=== PATIENT | female | born 1995 | race Caucasian/White ===

== ENCOUNTER 2019-02-15 20:45 | Observation (INO) | payer OTHER ==
[~2019-02-15] VITALS: Ht 157.5 cm; Wt 56.7 kg
--- NOTE | 2019-02-15 20:56 | ED General ---
General Stated Complaint: OVERDOSE Source of Information: Patient Exam Limitations: No Limitations (VENTURA FREED APRN) History of Present Illness Date Seen by Provider: Feb 15, 2019 Time Seen by Provider: 20:54 Initial Comments Brought to ER by her boyfriend with reports of an overdose. Patient reportedly took 10 of the 10 mg Paxil tablets at 8:20- 8:30 PM this evening as part of an attempt to harm herself due to worsening depression over the past month. Boyfriend is present and relates this to TROUBLES" between themselves. She denies any other medication or substance use. She does have a history of this in the past, states it's been several years ago. She sees a therapist and psychiatrist in [place] Timing/Duration: Getting Worse Severity: Moderate (VENTURA FREED APRN) Allergies and Home Medications Allergies Coded Allergies: No Known Drug Allergies (Unverified , 02/15/19) Patient Home Medication List Home Medication List Reviewed: Yes (VENTURA FREED APRN) Review of Systems Review of Systems Constitutional: see HPI EENTM: see HPI Respiratory: no symptoms reported Cardiovascular: no symptoms reported Genitourinary: no symptoms reported Musculoskeletal: no symptoms reported Skin: no symptoms reported Psychiatric/Neurological: No Symptoms Reported Hematologic/Lymphatic: No Symptoms Reported (VENTURA FREED APRN) Past Mixvdvi-Kspnhb-Fjjaoj Hx Patient Social History Recent Foreign Travel: No Contact w/Someone Who Travel: No (VENTURA FREED APRN) Physical Exam Vital Signs Vital Signs - First Documented 02/15/19 20:55 Temp 36.4 Pulse 95 Resp 18 B/P (MAP) 144/106 (119) Pulse Ox 97 O2 Delivery Room Air (CRISTINA PORTILLO) Vital Signs Capillary Refill : (VENTURA FREED APRN) Height, Weight, BMI Height: '" Weight: lbs. oz. kg; BMI Method: General Appearance: No Apparent Distress, WD/WN, Other (tearful) Eyes: Bilateral Eye Normal Inspection, Bilateral Eye PERRL, Bilateral Eye EOMI HEENT: PERRL/EOMI, TMs Normal Neck: Full Range of Motion, Normal Inspection Respiratory: No Accessory Muscle Use, No Respiratory Distress Cardiovascular: Regular Rate, Rhythm, Normal Peripheral Pulses Gastrointestinal: Non Tender, Soft Neurologic/Psychiatric: Alert, Oriented x3 Skin: Normal Color, Warm/Dry (VENTURA FREED APRN) Progress/Results/Core Measures Suspected Sepsis SIRS Temperature: Pulse: Respiratory Rate: Laboratory Tests 02/15/19 20:59: White Blood Count 6.4 Blood Pressure / Mean: Laboratory Tests 02/15/19 20:59: Platelet Count 302 (VENTURA FREED APRN) Results/Orders Lab Results Laboratory Tests Test 02/15/19 20:59 02/15/19 21:10 Range/Units White Blood Count 6.4 4.3-11.0 10^3/uL Red Blood Count 5.00 4.35-5.85 10^6/uL Hemoglobin 15.4 11.5-16.0 G/DL Hematocrit 44 35-52 % Mean Corpuscular Volume 88 80-99 FL Mean Corpuscular Hemoglobin 31 25-34 PG Mean Corpuscular Hemoglobin Concent 35 32-36 G/DL Red Cell Distribution Width 12.8 10.0-14.5 % Platelet Count 302 130-400 10^3/uL Mean Platelet Volume 10.7 H 7.4-10.4 FL Neutrophils (%) (Auto) 52 42-75 % Lymphocytes (%) (Auto) 35 12-44 % Monocytes (%) (Auto) 11 0-12 % Eosinophils (%) (Auto) 2 0-10 % Basophils (%) (Auto) 0 0-10 % Neutrophils # (Auto) 3.3 1.8-7.8 X 10^3 Lymphocytes # (Auto) 2.2 1.0-4.0 X 10^3 Monocytes # (Auto) 0.7 0.0-1.0 X 10^3 Eosinophils # (Auto) 0.1 0.0-0.3 10^3/uL Basophils # (Auto) 0.0 0.0-0.1 10^3/uL Sodium Level 144 135-145 MMOL/L Potassium Level 3.3 L 3.6-5.0 MMOL/L Chloride Level 112 H 98-107 MMOL/L Carbon Dioxide Level 17 L 21-32 MMOL/L Anion Gap 15 H 5-14 MMOL/L Blood Urea Nitrogen 12 7-18 MG/DL Creatinine 0.73 0.60-1.30 MG/DL Estimat Glomerular Filtration Rate > 60 BUN/Creatinine Ratio 16 Glucose Level 90 70-105 MG/DL Calcium Level 9.9 8.5-10.1 MG/DL Corrected Calcium 8.5-10.1 MG/DL Total Bilirubin 0.5 0.1-1.0 MG/DL Aspartate Amino Transf (AST/SGOT) 21 5-34 U/L Alanine Aminotransferase (ALT/SGPT) 28 0-55 U/L Alkaline Phosphatase 112 40-136 U/L Total Protein 7.6 6.4-8.2 GM/DL Albumin 4.9 H 3.2-4.5 GM/DL Serum Test, Qualitative NEGATIVE NEGATIVE Salicylates Level < 5.0 L 5.0-20.0 MG/DL Acetaminophen Level < 10 L 10-30 UG/ML Serum Alcohol 87 H <10 MG/DL Urine Color STRAW Urine Clarity SL CLOUDY Urine pH 7 5-9 Urine Specific [place] 1.005 L 1.016-1.022 Urine Protein NEGATIVE NEGATIVE Urine Glucose (UA) NEGATIVE NEGATIVE Urine Ketones NEGATIVE NEGATIVE Urine Nitrite NEGATIVE NEGATIVE Urine Bilirubin NEGATIVE NEGATIVE Urine Urobilinogen NORMAL NORMAL MG/DL Urine Leukocyte Esterase NEGATIVE NEGATIVE Urine RBC (Auto) NEGATIVE NEGATIVE Urine RBC NONE /HPF Urine WBC NONE /HPF Urine Squamous Epithelial Cells 5-10 /HPF Urine Crystals NONE /LPF Urine Bacteria TRACE /HPF Urine Casts NONE /LPF Urine Mucus SMALL H /LPF Urine Culture Indicated NO Urine Opiates Screen NEGATIVE NEGATIVE Urine Oxycodone Screen NEGATIVE NEGATIVE Urine Methadone Screen NEGATIVE NEGATIVE Urine Propoxyphene Screen NEGATIVE NEGATIVE Urine Barbiturates Screen NEGATIVE NEGATIVE Ur Tricyclic Antidepressants Screen NEGATIVE NEGATIVE Urine Phencyclidine Screen NEGATIVE NEGATIVE Urine Amphetamines Screen NEGATIVE NEGATIVE Urine Methamphetamines Screen NEGATIVE NEGATIVE Urine Benzodiazepines Screen NEGATIVE NEGATIVE Urine Cocaine Screen NEGATIVE NEGATIVE Urine Cannabinoids Screen NEGATIVE NEGATIVE (CRISTINA PORTILLO) Vital Signs/I&O 02/15/19 20:55 Temp 36.4 Pulse 95 Resp 18 B/P (MAP) 144/106 (119) Pulse Ox 97 O2 Delivery Room Air (CRISTINA PORTILLO) Vital Signs/I&O Capillary Refill : (VENTURA FREED APRN) Progress Note : Time: 22:08 Progress Note Assumed care of the patient at shift change from Ventura Freed APRN. [facility] screener came and sat with the patient and says that after discussing her case the patient still says she wants to go to sleep and never wake up and thinks the world would be better off without her in it. She also says that she does not want to go inpatient psychiatric care. [facility] recommends the patient go inpatient so our plan will be placed the patient on observation status for medical clearance and then in the morning aids social worker can work on placement for involuntary inpatient psychiatric care. (CRISTINA PORTILLO) Departure Communication (Admissions) 2056 height discussed with Sweta from poison control. States that ingestions of 10-1000 mg have resulted in no symptoms. Would recommend observation for 4 hours anyway. Does not recommend charcoal administration. 2119-[facility] will be out to evaluate the patient (VENTURA FREED APRN) Time/Spoke to Admitting Phy: 22:10 Discussed case lab imaging findings with Dr. Barillas and she agrees to observe the patient and her aids social worker consult the morning really involuntary psychiatric placement. (CRISTINA PORTILLO) Impression Primary Impression: Overdose of antidepressant Qualified Codes: T43.202A - Poisoning by unspecified antidepressants, intentional self-harm, initial encounter Disposition: ADMITTED INPATIENT Condition: Stable Admissions Decision to Admit Reason: Admit from ER (General) Decision to Admit/Date: Feb 15, 2019 Time/Decision to Admit Time: 22:00 (CRISTINA PORTILLO) Departure-Patient Inst. Referrals: NO,LOCAL PHYSICIAN (PCP) Primary Care Physician VENTURA FREED APRN Feb 15, 2019 20:55 CRISTINA PORTILLO Feb 15, 2019 22:12
[2019-02-15] MEDS ORDERED: CHARCOAL/AQUEOUS 50 GM/240 ML BTL PO ONE (21:00)
[2019-02-15 21:10] LABS: BASOPHILS % (AUTO) 0 % (0-10); EOSINOPHILS # (AUTO) 0.1 10^3/uL (0.0-0.3); EOSINOPHILS % (AUTO) 2 % (0-10); HEMATOCRIT 44 % (35-52); HEMOGLOBIN 15.4 G/DL (11.5-16.0); LYMPHOCYTES # (AUTO) 2.2 X 10^3 (1.0-4.0); LYMPHOCYTES % (AUTO) 35 % (12-44); MEAN CORPUSCULAR HEMOGLOBIN 31 PG (25-34); MEAN CORPUSCULAR HGB CONC 35 G/DL (32-36); MEAN CORPUSCULAR VOLUME 88 FL (80-99); MEAN PLATELET VOLUME 10.7 FL (7.4-10.4); MONOCYTES # (AUTO) 0.7 X 10^3 (0.0-1.0); MONOCYTES % (AUTO) 11 % (0-12); NEUTROPHILS # (AUTO) 3.3 X 10^3 (1.8-7.8); NEUTROPHILS % (AUTO) 52 % (42-75); PLATELET COUNT 302 10^3/uL (130-400); RED CELL DISTRIBUTION WIDTH 12.8 % (10.0-14.5); WHITE BLOOD COUNT 6.4 10^3/uL (4.3-11.0)
[2019-02-15 21:24] LABS: BILIRUBIN,URINE NEGATIVE (NEGATIVE); GLUCOSE, URINE (UA) NEGATIVE (NEGATIVE); KETONES,URINE NEGATIVE (NEGATIVE); LEUKOCYTE ESTERASE ,URINE NEGATIVE (NEGATIVE); NITRITE,URINE NEGATIVE (NEGATIVE); PH,URINE 7 (5-9); PROTEIN,URINE NEGATIVE (NEGATIVE); UROBILINOGEN,URINE NORMAL (NORMAL)
[2019-02-15 21:28] LABS: COLOR,URINE STRAW
[2019-02-15 21:31] LABS: BACTERIA,URINE TRACE /HPF; CLARITY,URINE SL CLOUDY
[2019-02-15 21:31] LABS: ALANINE AMINOTRANSFERASE 28 U/L (0-55); ALBUMIN 4.9 GM/DL (3.2-4.5); ALKALINE PHOSPHATASE 112 U/L (40-136); BILIRUBIN,TOTAL 0.5 MG/DL (0.1-1.0); BUN/CREATININE RATIO 16; CALCIUM 9.9 MG/DL (8.5-10.1); CARBON DIOXIDE 17 MMOL/L (21-32); CHLORIDE 112 MMOL/L (98-107); CREATININE SERUM 0.73 MG/DL (0.60-1.30); GFR ESTIMATED > 60; GLUCOSE 90 MG/DL (70-105); POTASSIUM 3.3 MMOL/L (3.6-5.0); SALICYLATE < 5.0 MG/DL (5.0-20.0); SODIUM 144 MMOL/L (135-145); TOTAL PROTEIN 7.6 GM/DL (6.4-8.2)
[2019-02-15 21:34] LABS: ACETAMINOPHEN < 10 UG/ML (10-30)
[2019-02-15 21:35] LABS: AMPHETAMINE SCREEN, URINE NEGATIVE (NEGATIVE); BARBITURATE SCREEN URINE NEGATIVE (NEGATIVE); BENZODIAZEPINES SCREEN URINE NEGATIVE (NEGATIVE); CANNABINOID SCREEN, URINE NEGATIVE (NEGATIVE); COCAINE SCREEN URINE NEGATIVE (NEGATIVE); METHADONE STAT NEGATIVE (NEGATIVE); METHAMPHETAMINE SCREEN URINE S NEGATIVE (NEGATIVE); OPIATE SCREEN URINE NEGATIVE (NEGATIVE); OXYCODONE STAT NEGATIVE (NEGATIVE); PROPOXYPHENE STAT NEGATIVE (NEGATIVE); TRICYCLIC ANTIDEPRESSANTS SCRE NEGATIVE (NEGATIVE)
--- NOTE | 2019-02-15 22:02 | NUR ---
DR PORTILLO IN ROOM TO DISCUSS CARE.
[2019-02-15] MEDS ORDERED: ONDANSETRON 4 MG/2 ML (SDV) Z0FRAN ONE (22:17)
[2019-02-15] MEDS ORDERED: ONDANSETRON 4 MG/2 ML (SDV) Z0FRAN IVP ONE (22:30)
[2019-02-15 23:05] VITALS: BP 121/71
--- NOTE | 2019-02-15 23:05 | NUR ---
ROBBY CORREA Stanley admitted to room 421-1, with an admitting diagnosis of suicidal attempt with paxil, on 02/15/19 from ED via wheelchair, accompanied by family and staff.ROBBY CORREA introduced to surroundings, call light, bed controls, phone, TV, temperature control, lights, meal times, smoking policy, visitor policy, side rail policy, bathrooms and showers. Patient Rights given to patient in the handbook. ROBBY CORREA verbalizes understanding that [facility] is not responsible for the loss or damage to any personal effects or valuables that are kept in the patients posession during their hospitalization.
--- NOTE | 2019-02-15 23:09 | NUR ---
THIS RN SPOKE WITH DR. GARCIA AND SHE AGREED WITH PLAN OF CARE TO HAVE TELESITTER IN PLACE ALONG WITH PATIENTS MOTHER TO BE IN THE ROOM AT ALL TIMES INSTEAD OF 1:[address]
--- NOTE | 2019-02-15 23:13 | NUR ---
Marleen Correa Stanley admitted to room 421-1, with an admitting diagnosis of Suicidal Attempt with Paxil, on 02/15/19 from ed via , accompanied by ED Staff/Family .MARLEEN CORREA introduced to surroundings, call light, bed controls, phone, TV, temperature control, lights, meal times, smoking policy, visitor policy, side rail policy, bathrooms and showers. Patient Rights given to patient in the handbook.MARLEEN CORREA verbalizes understanding that [facility] is not responsible for the loss or damage to any personal effects or valuables that are kept in the patients posession during their hospitalization.
[2019-02-16] VITALS: BP 121/71
[2019-02-16 04:00] VITALS: BP 106/67
[2019-02-16] MEDS ORDERED: ONDANSETRON 4 MG/2 ML (SDV) Z0FRAN IVP PRN (07:30)
[2019-02-16] MEDS ORDERED: PARO10TA81 PO (10:48)
--- NOTE | 2019-02-16 10:48 | NUR ---
SPOKE WITH PT ALSO CALLED [facility] TO COMPLETE THE MED REC. HARDEEP VERIFIED THAT THE PT'S MOST CURRENT DOSE OF PAROXETINE IS THE 10MG 1 DAILY PT STATES SHE DOESN'T TAKE ANY OTC MEDS
[2019-02-16 11:12] LABS: BUN/CREATININE RATIO 19; CALCIUM 9.3 MG/DL (8.5-10.1); CARBON DIOXIDE 25 MMOL/L (21-32); CHLORIDE 109 MMOL/L (98-107); GFR ESTIMATED > 60; GLUCOSE 91 MG/DL (70-105); MAGNESIUM 2.1 MG/DL (1.6-2.4); POTASSIUM 3.7 MMOL/L (3.6-5.0); SODIUM 141 MMOL/L (135-145)
--- NOTE | 2019-02-16 12:23 | NUR ---
Behavioral health here assessed patient - clear for discharge to f/u with her therapy tomorrow at 1100
--- NOTE | 2019-02-16 14:01 | Discharge Instructions ---
Discharge Instructions Patient Instructions Patient Instructions: Take medications as prescribed. Follow up with therapist tomorrow. [facility] For: fevers, confusion, suicidal thoughts, or if you feel like you are getting worse Activity & Diet Discharge Diet: No Restrictions Activity as Tolerated: Yes TUNDE FORTUNE MD Feb 16, 2019 14:01
[2019-02-16 14:31] VITALS: BP 106/67
--- NOTE | 2019-02-16 14:39 | NUR ---
CM/VERNON spoke with the patient and her family in regards to the SS consult. Patient has existing MH services that she will be following up with. Patient nor her family felt they had any other discharge needs.
--- NOTE | 2019-02-16 14:46 | Short Stay Summary-Hospitalist ---
History of Present Illness HPI/Chief Complaint Marleen Ma is a 24-year-old female with history of depression who presented with intentional overdose of Paxil. She reports that she took about 10 pills of Paxil with the intention of harming herself as a suicide attempt. She had a similar attempt in the past with a different medication. She has no history of any other types of suicide attempt. She is under the care of a therapist in [place]. She was evaluated by the [facility] and determined to not be a candidate for inpatient psychiatric treatment. She does not have any active suicidal ideation or intent. She was discharged home with her family and will follow-up with her therapist tomorrow. She remained medically stable throughout her hospitalization. Source: patient Exam Limitations: no limitations Date Seen 02/16/19 Time Seen by a Provider: 10:30 Attending Physician Julia Barillas MD PCP No,Local Physician Referring Physician Date of Admission Feb 15, 2019 at 22:15 Home Medications & Allergies Home Medications Reviewed patient Home Medication Reconciliation performed by pharmacy medication reconciliations video surveillance technician and/or nursing. Patients Allergies have been reviewed. Allergies Allergies Coded Allergies No Known Drug Allergies (Unverified02/15/19) Past Kkkwzdf-Ebugae-Yurgwm Hx Past Med/Social Hx: Reviewed Nursing Past Med/Soc Hx Patient Social History Alcohol Use: Occasionally Uses Number of Drinks Today: AA Alcohol Beverage of Choice: Beer Recreational Drug Use: No Smoking Status: Never a Smoker Physical Abuse Screen: No Sexual Abuse: No Recent Foreign Travel: No Contact w/other who traveled: No Recent Hopitalizations: No Recent Infectious Disease Expo: No Immunizations Up To Date Tetanus Booster (TDap): Less than 5yrs Pediatric: Yes Seasonal Allergies Seasonal Allergies: No Past Medical History Surgeries: Tonsillectomy : No Psychosocial: Depression History of Blood Disorders: No Adverse Reaction to Blood Allison: No Review of Systems Constitutional: no symptoms reported EENTM: no symptoms reported Respiratory: no symptoms reported Cardiovascular: no symptoms reported Gastrointestinal: no symptoms reported Genitourinary: no symptoms reported Musculoskeletal: no symptoms reported Skin: no symptoms reported Psychiatric/Neurological: Depressed Physical Exam Physical Exam Vital Signs Vital Signs - First Documented 02/15/19 20:55 Temp 36.4 Pulse 95 Resp 18 B/P (MAP) 144/106 (119) Pulse Ox 97 O2 Delivery Room Air Capillary Refill : Less Than 3 Seconds Height, Weight, BMI Height: '" Weight: 125lbs. 0.0oz. 56.533307ha; 22.85 BMI Method: General Appearance: No Apparent Distress, WD/WN Eyes: Bilateral Eye Normal Inspection, Bilateral Eye PERRL, Bilateral Eye EOMI HEENT: PERRL/EOMI, Pharynx Normal Neck: Normal Inspection, Supple Respiratory: Lungs Clear, Normal Breath Sounds, No Respiratory Distress Cardiovascular: Regular Rate, Rhythm, No Edema, No Murmur Gastrointestinal: Normal Bowel Sounds, Non Tender, Soft Extremity: Normal Inspection, Non Tender, No Pedal Edema Neurologic/Psychiatric: Alert, Oriented x3 Skin: Normal Color, Warm/Dry Results Results/Procedures Labs Laboratory Tests 02/15/19 20:59 02/16/19 10:35 Patient resulted labs reviewed. Short Stay Diagnosis Discharge Diagnosis-Short Stay Admission Diagnosis intentional overdose of SSRI Final Discharge Diagnosis intentional overdose of SSRI Conclusion Plan intentional overdose of SSRI Remained medically stable Evaluated by [facility] and determined to not be a candidate for inpatient psychiatric treatment Follow-up with outpatient therapist tomorrow Diagnosis/Problems Diagnosis/Problems (1) Intentional overdose of selective serotonin reuptake inhibitor (SSRI) Status: Acute Clinical Quality Measures DVT/VTE Risk/Contraindication: RFS Level Per Nursing on Admit: 0=No Risk/No VTE PPX TUNDE FORTUNE MD Feb 16, 2019 14:46
== END 2019-02-16 13:58 | disposition home or self-care (01) ==
LOC: ER 20:48 → 4TH 22:15 → UNDOADMOB 22:15 → 4TH 23:05 → UNDODISOB 02-16 14:38
PROVIDERS: ADMIT Internal Medicine; ATTEND Internal Medicine
DX: T43.222A Poisoning by selective serotonin reuptake inhibitors, intentional self-harm, initial encounter (principal); T14.91XA Suicide attempt, initial encounter; F32.9 Major depressive disorder, single episode, unspecified
CPT/HCPCS: 36415; 80048; 80053; 80306; 80320; 80329; 81000; 83735; 84703; 85025; 93005; 96374; G0378